=== PATIENT | male | born 1980 | race African-American/Black ===

== ENCOUNTER 2016-10-16 08:15 | Emergency (ER) | payer OTHER ==
[~2016-10-16] VITALS: Ht 177.8 cm; Wt 99.8 kg
[2016-10-16 08:27] VITALS: BP 122/80
[2016-10-16] MEDS ORDERED: AMOXICILLIN500 M2 PO (09:21)
--- NOTE | 2016-10-16 09:22 | ED THROAT/DENTAL COMPLAINT ---
History of Present Illness General Chief Complaint: Sore Throat, Dental Pain Stated Complaint: SORE THROAT Source: patient Exam Limitations: no limitations Vital Signs & Intake/Output Vital Signs & Intake/Output Vital Signs Date Time Temp Pulse Resp B/P B/P Pulse O2 O2 Flow FiO2 Mean Ox Delivery Rate 10/16 0827 97.4 62 20 122/80 98 Room Air Room Air Allergies Coded Allergies: NO KNOWN ALLERGIES (09/13/12) Triage Note: PT TO ED WITH C/O LEFT THROAT/GLAND PAIN, "MY WAS HERE YESTERDAY AND GIVEN ANTIBIOTICS". Triage Nurses Notes Reviewed? yes Onset: Gradual Duration: day(s):, better, continues in ED Severity: moderate HPI: Patient presents for evaluation of a constant but improving left neck and left throat pain that began gradually on Thursday or Thursday. Patient states that he had a fever and had some pain with swallowing. He noticed white patches on his tonsils but these seem to have resolved. Past History Travel History Traveled to [place] past 21 day No Medical History Any Pertinent Medical History? see below for history Neurological: NONE EENT: NONE Cardiovascular: NONE Respiratory: NONE Gastrointestinal: NONE Hepatic: NONE Renal: NONE Musculoskeletal: NONE Psychiatric: NONE Endocrine: NONE Blood Disorders: NONE Cancer(s): NONE Surgical History Surgical History: non-contributory Psychosocial History What is your primary language German Tobacco Use: Never used ETOH Use: occasional use Illicit Drug Use: denies illicit drug use Family History Hx Contributory? No Review of Systems Review of Systems Constitutional: Reports: no symptoms. EENTM: Reports: see HPI. Respiratory: Reports: no symptoms. Cardiovascular: Reports: no symptoms. GI: Reports: no symptoms. Genitourinary: Reports: no symptoms. Musculoskeletal: Reports: no symptoms. Skin: Reports: no symptoms. Neurological/Psychological: Reports: no symptoms. Hematologic/Endocrine: Reports: no symptoms. Immunologic/Allergic: Reports: no symptoms. All Other Systems: Reviewed and Negative Physical Exam Physical Exam Mouth/Throat: SEE BELOW Comments: Gen.: Well-nourished, well-developed, no acute respiratory distress. Head: Normocephalic, atraumatic. Eyes: Normal inspection bilaterally Ears: Normal inspection bilaterally Nose: Normal inspection Throat/mouth : Moist mucosa , mild tonsillar swelling without exudates or erythema Neck: Supple, full range of motion, no goiter Lungs: Quiet respirations Chest: Nontender Back: Normal range of motion Extremities: Normal range of motion grossly Neurologic: Cranial nerves grossly intact, speech is clear Skin: warm and dry Psychiatric: Calm, cooperative, no apparent delusions or hallucinations Lymphatic: Mild left anterior cervical lymphadenopathy Core Measures ACS in differential dx? No Severe Sepsis Present: No Septic Shock Present: No Progress Differential Diagnosis: VIRAL VERSUS BACTERIAL PHARYNGITIS Plan of Care: Orders Procedure Date/time Status THROAT CULTURE W/QUICK STREP 10/17 827 Complete Comments: Given patient's stated history of fever tonsillar exudates and lymphadenopathy I will treat for strep pharyngitis. Departure Departure Disposition: HOME OR SELF CARE Condition: Stable Clinical Impression Primary Impression: Streptococcal pharyngitis Referrals: MARKO BRAVO MD (PCP/Family) Additional Instructions: Amoxicillin as prescribed. Ibuprofen 2 tablets every 6 hours as needed for pain or swelling. Follow-up with your primary care physician on Thursday or Thursday if not improving. Return if any concerns or sudden worsening. Thank you for choosing the [facility] for your care. It was a pleasure to serve you today. Jae Ovreton M.D. [facility] Departure Forms: Customer Survey General Discharge Information Prescriptions: Current Visit Scripts Amoxicillin 1 TAB PO TID #30 TAB
== END 2016-10-16 09:24 ==
LOC: ERH 08:15
DX: J02.0 Streptococcal pharyngitis (principal)